=== PATIENT | female | born 1955 | race Two or more races ===

== ENCOUNTER 2020-09-12 06:56 | Outpatient (CLI) | payer OTHER | END 2020-09-12 07:00 | disposition home or self-care (01) | LOC: LAB 06:56 | PROVIDERS: ATTEND Orthopaedic Surgery | DX: E83.42 Hypomagnesemia (principal); M85.88 Other specified disorders of bone density and structure, other site; M81.8 Other osteoporosis without current pathological fracture; E88.89 Other specified metabolic disorders; E56.1 Deficiency of vitamin K ==

== ENCOUNTER 2023-06-19 12:19 | Emergency (ER) | payer OTHER ==
[~2023-06-19] VITALS: Ht 154.9 cm; Wt 59.0 kg
[2023-06-19] MEDS ORDERED: LEVOTHYROXINE25 MCG PO (13:04)
[2023-06-19] MEDS ORDERED: ATACAND16 MG PO (13:04)
== END 2023-06-19 15:46 | disposition home or self-care (01) ==
LOC: ER 12:20
DX: S42.294A Other nondisplaced fracture of upper end of right humerus, initial encounter for closed fracture (principal); W10.8XXA Fall (on) (from) other stairs and steps, initial encounter; Y93.89 Activity, other specified; Y92.018 Other place in single-family (private) house as the place of occurrence of the external cause; Y99.9 Unspecified external cause status; M79.621 Pain in right upper arm; I10 Essential (primary) hypertension
CPT/HCPCS: 29126; 73060; 96372; 99284; J1885

== ENCOUNTER 2023-06-27 08:54 | Outpatient (CLI) | payer OTHER ==
[~2023-06-27 08:54] MED LIST: ATACAND16 MG PO; LEVOTHYROXINE25 MCG PO
== END 2023-06-27 08:59 | disposition home or self-care (01) ==
LOC: RAD 08:54
PROVIDERS: ATTEND Orthopaedic Surgery
DX: S42.321A Displaced transverse fracture of shaft of humerus, right arm, initial encounter for closed fracture (principal)

== ENCOUNTER 2023-06-28 07:54 | Outpatient (CLI) | payer OTHER ==
[2023-06-28 09:32] LABS: HEMATOCRIT 38.8 % (36.0-45.00); HEMOGLOBIN 13.7 g/dL (12.0-15.00); MEAN CORPUSCULAR HEMOGLOBIN 30.6 pg (27.00-32.0); MEAN CORPUSCULAR HGB CONC 35.2 g/dl (32.0-36.0); PLATELET COUNT 308 K/uL (150-450); RED BLOOD COUNT 4.46 M/uL (4.00-6.00); RED CELL DISTRIBUTION WIDTH 13.3 % (11.5-14.5)
[2023-06-28 10:08] LABS: PH,URINE 6.5 (5.0-8.0); URINE APPEARANCE Clear; URINE BILIRRUBIN Negative (NEGATIVE); URINE BLOOD Negative; URINE COLOR Yellow; URINE GLUCOSE Negative (NEGATIVE); URINE LEUKOCYTE Negative; URINE NITRATE Negative; URINE PROTEIN Negative (NEGATIVE); URINE UROBILINOGEN 0.2 E.U./dl
[2023-06-28 10:10] LABS: URINE RBC 5.4 uL (0.0-20.8)
[2023-06-28 10:18] LABS: URINE BACTERIA 1.2 uL (0.0-1933); URINE EPITHELIAL CELLS 0.3 uL (0.0-38.8); URINE WBC 0.3 uL (0.0-23.2)
[2023-06-28 10:19] LABS: ALBUMIN 3.8 gm/dL (3.4-5.0); BILIRUBIN TOTAL 1.65 mg/dL (0.3-1.2); CALCIUM 9.5 mg/dL (8.5-10.1); CREATININE SERUM 0.41 mg/dL (0.55-1.02); GFR 153.81; GLOBULINA 2.9 G/DL (2.4-3.5); POTASSIUM 4.85 mEq/L (3.5-5.1); TOTAL PROTEIN 6.7 gm/dL (6.4-8.2)
[2023-06-28 10:31] LABS: INR 0.99; PROTHROMBIN TIME 10.4 SECONDS (9.0-11.5)
[2023-06-28 10:32] LABS: PARTIAL THROMBOPLASTIN TIME 28.2 SECONDS (22.0-34.0)
== END 2023-06-28 07:55 | disposition home or self-care (01) ==
LOC: LAB 07:54
PROVIDERS: ATTEND Orthopaedic Surgery
DX: D64.9 Anemia, unspecified (principal); D68.8 Other specified coagulation defects; N39.0 Urinary tract infection, site not specified; E11.9 Type 2 diabetes mellitus without complications; Z20.822 Contact with and (suspected) exposure to COVID-19; E88.9 Metabolic disorder, unspecified; I10 Essential (primary) hypertension; Z76.89 Persons encountering health services in other specified circumstances

== ENCOUNTER 2023-07-08 11:30 | Day surgery (SDC) | payer OTHER | END 2023-07-09 01:15 | disposition home or self-care (01) | LOC: CIR.AMB 11:30 | PROVIDERS: ATTEND Orthopaedic Surgery | DX: S42.321A Displaced transverse fracture of shaft of humerus, right arm, initial encounter for closed fracture (principal); T84.84XA Pain due to internal orthopedic prosthetic devices, implants and grafts, initial encounter | CPT/HCPCS: 24516; L8699 ==

== ENCOUNTER 2023-08-08 13:39 | Outpatient (CLI) | payer OTHER | END 2023-08-08 13:40 | disposition home or self-care (01) | LOC: RAD 13:39 | PROVIDERS: ATTEND Orthopaedic Surgery | DX: S42.321D Displaced transverse fracture of shaft of humerus, right arm, subsequent encounter for fracture with routine healing (principal) ==

== ENCOUNTER 2023-08-16 10:34 | Outpatient (CLI) | payer OTHER ==
[2023-08-16 11:39] LABS: HEMATOCRIT 39.6 % (36.0-45.00); HEMOGLOBIN 14.3 g/dL (12.0-15.00); MEAN CELL VOLUME 87.2 fL (80.00-100.00); MEAN CORPUSCULAR HEMOGLOBIN 31.5 pg (27.00-32.0); MEAN CORPUSCULAR HGB CONC 36.1 g/dl (32.0-36.0); PLATELET COUNT 267 K/uL (150-450); RED BLOOD COUNT 4.54 M/uL (4.00-6.00); RED CELL DISTRIBUTION WIDTH 13.6 % (11.5-14.5)
[2023-08-16 11:42] LABS: ERYTHROCYTE SEDIMENTATION RATE 2 mm/hr
== END 2023-08-16 11:34 | disposition home or self-care (01) ==
LOC: LAB 10:34
PROVIDERS: ATTEND Orthopaedic Surgery
DX: D64.9 Anemia, unspecified (principal); M06.4 Inflammatory polyarthropathy

== ENCOUNTER 2023-08-28 07:11 | Outpatient (CLI) | payer OTHER ==
[2023-08-28 08:25] LABS: HEMATOCRIT 39.3 % (36.0-45.00); MEAN CELL VOLUME 86.7 fL (80.00-100.00); MEAN CORPUSCULAR HEMOGLOBIN 30.9 pg (27.00-32.0); MEAN CORPUSCULAR HGB CONC 35.6 g/dl (32.0-36.0); PLATELET COUNT 284 K/uL (150-450); RED BLOOD COUNT 4.53 M/uL (4.00-6.00)
[2023-08-28 08:51] LABS: ERYTHROCYTE SEDIMENTATION RATE < 1 mm/hr
== END 2023-08-28 07:12 | disposition home or self-care (01) ==
LOC: LAB 07:11
PROVIDERS: ATTEND Orthopaedic Surgery
DX: D64.9 Anemia, unspecified (principal); M06.4 Inflammatory polyarthropathy

== ENCOUNTER 2023-12-16 12:55 | Outpatient (CLI) | payer OTHER | END 2023-12-16 12:56 | disposition home or self-care (01) | LOC: NUCLEAR 12:55 | PROVIDERS: ATTEND Orthopaedic Surgery | DX: M81.0 Age-related osteoporosis without current pathological fracture (principal) ==